=== PATIENT | female | born 2000 | race Caucasian/White ===

== ENCOUNTER 2020-01-15 00:31 | Emergency (ER) | payer SELFPAY ==
[2020-01-15] MEDS ORDERED: NS 0.9% 1000 ML** 1,000 ML IV ONE (00:55)
[2020-01-15] MEDS ORDERED: Pantoprazole IV* 40 MG IV ONE (00:56)
[2020-01-15] MEDS ORDERED: Ondansetron INJ* 2 MG/ML VIAL IV ONE (00:56)
[2020-01-15 01:26] LABS: ABS Eosinophils 0.3 10^3/ul (0-0.6); ABS Lymphocytes 3.5 10^3/ul (1.0-4.8); ABS Monocytes 0.6 10^3/ul (0-0.8); ABS Neutrophils 3.2 10^3/ul (1.5-7.7); Eosinophil % 4.2 %; Hematocrit 39 % (35-47); Hemoglobin 13.1 g/dL (12.0-16.0); Lymphocyte % 46.2 %; Mean Corpuscular HGB Conc 34 g/dL (31-36); Mean Corpuscular Hemoglobin 28 pg (27-31); Mean Corpuscular Volume 83 fL (80-97); Mean Platelet Volume 6.7 fL (7.4-10.4); Nucleated Red Blood Cells % 0.1; Platelet Count 337 10^3/uL (150-450); Red Blood Count 4.71 10^6 /uL (3.70-4.87); Red Cell Distribution Width 15 % (10-15); White Blood Count 7.6 10^3/uL (3.5-10.8)
--- NOTE | 2020-01-15 01:28 | ED ---
Substance Abuse/Use - HPI Summary HPI Summary: THIS IS A LEVEL 5 CAVEAT, PATIENT IS UNRESPONSIVE. 19 year old female presents to the ED by EMS with a chief complaint of alcohol intoxication [employer]GER. She is in no respiratory distress. Patient is lethargic. Unable to obtain an accurate history initially. No signs of trauma - History Of Current Complaint Chief Complaint: EDSubstanceAbuse Stated Complaint: ETOH PER PTS FRIEND Time Seen by Provider: 01/15/20 00:33 Hx Obtained From: EMS Hx From Patient Unobtainable Due To: Altered Mental Status ?: No Onset/Duration of Drug/ETOH Abuse: Minutes Ingestion History: Type/Name Of Drug - ETOH Character: Lethargic - Allergies/Home Medications Allergies/Adverse Reactions: Allergies Allergy/AdvReac Type Severity Reaction Status Date / Time peanut Allergy Unknown Verified 01/15/20 00:35 Reaction Details Home Medications: Home Medications Unobtainable 01/15/20 [History Confirmed 01/15/20] PMH/Surg Hx/FS Hx/Imm Hx Infectious Disease History: Unable to Obtain/Confirm Infectious Disease History: Denies: Traveled Outside the [place] in Last 30 Days - Social History Alcohol Use: Occasionally Substance Use Type: Reports: None Smoking Status (MU): Never Smoked Tobacco Review of Systems - ROS Summary Review of Systems Summary: Home Medications Medication Instructions Recorded Confirmed Type Unobtainable 01/15/20 01/15/20 History Negative: Fever All Other Systems Reviewed And Are Negative: No Physical Exam - Summary Physical Exam Summary: General: Well-developed, Well-nourished female. No acute distress. Lethargic. HEENT: Normocephalic, Atraumatic. Eyes: Conjuctiva normal, PERRL. Ears: TMs within normal limits. Nares: (-) discharge, (-) erythema. Oropharynx: Clear, mucous membranes moist, (-) exudates. Neck: Soft, FROM, (-) lymphadenopathy, (-) thyromegaly, (-) JVD. Cardiovascular: Normal sinus rhythm, (-) murmur. Lungs: Clear to auscultation bilaterally (-) wheezes, (-) rales, (-) rhonchi. Abdomen: Soft, non-tender, non-distended, (-) organomegaly, normal bowel sounds. Back: (-) CVA tenderness Extremities: No edema. Skin: Warm, dry, (-) rash. Neuro: Unable to assess. Psychiatric: Unable to assess. Triage Information Reviewed: Yes Vital Signs On Initial Exam: Initial Vitals Temp Pulse Resp BP Pulse Ox 96.5 F 83 16 107/67 97 01/15/20 00:32 01/15/20 00:32 01/15/20 00:32 01/15/20 00:32 01/15/20 00:32 Vital Signs Reviewed: Yes Completion Of Physical Exam Limited Due To: Level 5 Procedures - Sedation Patient Received Moderate/Deep Sedation with Procedure: No Diagnostics - Vital Signs Vital Signs Temp Pulse Resp BP Pulse Ox 01/15/20 01:08 77 101/54 95 01/15/20 01:00 77 95 01/15/20 00:39 119 102/78 93 01/15/20 00:38 86 97 01/15/20 00:32 96.5 F 83 16 107/67 97 - Laboratory Result Diagrams: 01/15/20 01:19 01/15/20 01:19 Lab Statement: Any lab studies that have been ordered have been reviewed, and results considered in the medical decision making process. Re-Evaluation - Re-Evaluation First Eval Re-Evaluation Time: 06:41 Change: Improved Comment: Patient is walking, talking, alert, and oriented. She states that a sober friend will pick her up and bring her home. Course/Dx - Course Course Of Treatment: 19-year-old female with acute alcohol intoxication. Patient lethargic for many hours in the emergency room. Patient awoke and was alert and oriented 3. Able to ambulate. Patient denies any pain or concerns at this time. She is discharged home with a sober friend. Follow-up with PCP. Follow-up sooner for any worsening symptoms. - Diagnoses Provider Diagnoses: Alcohol intoxication Discharge ED - Sign-Out/Discharge Documenting (check all that apply): Patient Departure - discharge home with sober friend - Discharge Plan Condition: Stable Disposition: HOME Patient Education Materials: Alcohol Intoxication (ED) [facility] [Z.BUSINESS, APPLICATION, OTHER] - Additional Instructions: [facility]. Return to the ED if you experience new or worsened symptoms. - Billing Disposition and Condition Condition: STABLE Disposition: Home - Attestation Statements Document Initiated by Scribe: Yes Documenting Scribe: Gomez Fowler Provider For Whom Scribe is Documenting (Include Credential): Tatiana Ball MD Scribe Attestation: I, Gomez Fowler, scribed for Tatiana Ball MD on 01/15/20 at 0705. Scribe Documentation Reviewed: Yes Provider Attestation: The documentation as recorded by the scribe, Gomez Fowler accurately reflects the service I personally performed and the decisions made by me, Tatiana Ball MD Status of Scribe Document: Viewed
[2020-01-15 01:49] LABS: HCG Pregnancy < 0.60 mIU/mL
[2020-01-15 02:07] LABS: Albumin 4.9 g/dL (3.2-5.2); Anion Gap 9 mmol/L (2-11); CO2 Carbon Dioxide 24 mmol/L (22-32); Calcium 8.8 mg/dL (8.6-10.3); Chloride 109 mmol/L (101-111); Potassium 3.8 mmol/L (3.5-5.0); Sodium 142 mmol/L (135-145)
[2020-01-15 02:09] LABS: Acetaminophen < 15 mcg/mL; Alcohol 343 mg/dL (<10); Salicylate < 2.50 mg/dL (<30)
[2020-01-15 02:13] LABS: ALT 18 U/L (7-52); AST 18 U/L (13-39); Albumin/Globulin Ratio 1.8 (1-3); Alkaline Phosphatase 56 U/L (34-104); Blood Urea Nitrogen 14 mg/dL (6-24); EGFR African American 129.1 (>60); EGFR Non-African American 106.7 (>60); Globulin 2.8 g/dL (2-4); Glucose 91 mg/dL (70-100); Total Protein 7.7 g/dL (6.4-8.9)
[2020-01-15 07:29] VITALS: BP 110/57
== END 2020-01-15 07:28 | disposition home or self-care (01) ==
LOC: ED 00:31
DX: F10.929 Alcohol use, unspecified with intoxication, unspecified (principal)
CPT/HCPCS: 36415; 80053; 80320; 80329; 83605; 84702; 85025; 96361; 96374; 96375; 99283; G0480; J2405